=== PATIENT | male | born 1935 | race Caucasian/White ===

== ENCOUNTER 2017-09-19 08:23 | Inpatient (IN) | payer MEDICAID ==
[2017-09-19] MEDS ORDERED: NITROGLYCERIN (SL) 0.4 MG TAB SL (09:00)
[2017-09-19] MEDS: ASPIRIN 81 MG TAB PO (09:22)
[2017-09-19] MEDS: NITROGLYCERIN 2% 1 GM OINT PKT TD (09:22)
[2017-09-19] MEDS: DILTIAZEM 25 MG INJ IV (09:24)
[2017-09-19 09:31] LABS: ADD MAN DIFF? NO
[2017-09-19 09:35] LABS: BASOPHIL # 0.1 10^3/ul (0.0-0.1); BASOPHILS % 1.2 % (0.0-2.0); EOSINOPHILS # 0.6 10^3/ul (0.0-0.5); EOSINOPHILS % 6.3 % (0.0-7.0); HEMATOCRIT 34.1 % (42.0-52.0); HEMOGLOBIN 11.1 g/dl (14.0-18.0); LYMPHOCYTES # 2.7 10^3/ul (0.8-2.9); LYMPHOCYTES % 27.8 % (15.0-51.0); MEAN CORPUSCULAR HEMOGLOBIN 28.5 pg (29.0-33.0); MEAN CORPUSCULAR HGB CONC 32.6 g/dl (32.0-37.0); MEAN CORPUSCULAR VOLUME 87.7 fl (82.0-101.0); MEAN PLATELET VOLUME 10.5 fl (7.4-10.4); MONOCYTE # 0.8 10^3/ul (0.3-0.9); MONOCYTES % 8.2 % (0.0-11.0); NEUTROPHIL # 5.5 10^3/ul (1.6-7.5); NEUTROPHILS % 55.6 % (39.0-77.0); PLATELET COUNT 325 10^3/UL (140-415); RED BLOOD COUNT 3.89 10^6/ul (4.70-6.10); RED CELL DISTRIBUTION WIDTH 15.2 % (11.5-14.5)
[2017-09-19 09:35] LABS: WHITE BLOOD COUNT 9.9 10^3/ul (4.8-10.8)
[2017-09-19 09:52] LABS: INR 0.92; PROTIME 12.4 Sec (11.9-14.9)
[2017-09-19 09:53] LABS: PARTIAL THROMBOPLASTIN TIME 38.2 Sec (25.0-35.0)
[2017-09-19 09:54] LABS: ANION GAP 20 (8-16); BLOOD UREA NITROGEN 45 mg/dl (7-20); CARBON DIOXIDE 18 mmol/L (21-31); CHLORIDE 108 mmol/L (97-110); CREATININE 1.89 mg/dl (0.61-1.24); GLUCOSE 182 mg/dl (70-220); POTASSIUM 5.7 mmol/L (3.5-5.1); SODIUM 140 mmol/L (135-144)
[2017-09-19] MEDS: DILTIAZEM 30 MG TAB PO (09:59)
[2017-09-19 10:05] LABS: TROPONIN-I 0.055 ng/ml (0.00-0.12)
[2017-09-19] MEDS: NA BICARBONATE 8.4% 50 ML SYG IV (10:41)
[2017-09-19] MEDS ORDERED: ONDANSETRON 4 MG INJ IV (11:00)
[2017-09-19] MEDS ORDERED: ACETAMINOPHEN 325 MG TAB PO (11:00)
[2017-09-19] MEDS ORDERED: DEXTROSE 50% 50 ML SYRINGE IV ×2 (15:30)
[2017-09-19] MEDS ORDERED: GLUCOSE GEL 15 GRAM TUBE BUCCAL (15:30)
[2017-09-19] MEDS ORDERED: GLUCOSE GEL 15 GRAM TUBE PO ×2 (15:30)
[2017-09-19] MEDS ORDERED: GLUCAGON 1 MG INJ IM (15:30)
[2017-09-19] MEDS ORDERED: hydrALAzine 20 MG INJ IV (16:30)
[2017-09-19 16:47] LABS: CREATINE KINASE 47 IU/L (23-200)
[2017-09-19 16:51] LABS: CK INDEX 2.7
[2017-09-19 16:52] LABS: CK-MB 1.28 ng/ml (0.0-2.4)
[2017-09-19 17:05] LABS: TROPONIN-I 0.065 ng/ml (0.00-0.12)
[2017-09-19] MEDS: INSULIN ASPART [NOVOLOG] 3 ML PEN SC ×2 (17:31→20:47)
[2017-09-19] MEDS: FUROSEMIDE 20 MG INJ IV (17:35)
[2017-09-19 18:20] LABS: AADO2 Arterial 57.9 mmHg (7.0-24.0); Allen Test ACCEPTAB; Arterial Base Excess -1.3 mmol/L (-3.0-3); Arterial Blood Gas Oxygen Sat 97.8 mmHG (95.0-100.0); Arterial COHb 0.1 % (0.0-3.0); Arterial Fraction of Oxyhgb 97.5 % (93.0-99.0); Arterial HCO3 21.7 mmol/L (22.0-26.0); Arterial MetHb 0.2 % (0.0-1.5); Arterial Total Hemglobin 14.1 g/dl (12.0-18.0); Arterial pCO2 31.8 mmhg (35-45); MODE NASAL CANNULA; Site Left Radial
[2017-09-19 20:00] LABS: ADD UMIC YES; UR ASCORBIC ACID NEGATIVE (NEGATIVE); UR BACTERIA FEW /HPF (NONE SEEN); UR BILIRUBIN (Dip) NEGATIVE (NEGATIVE); UR BLOOD (Dip) 1+ mg/dL (NEGATIVE); UR CLARITY CLEAR (CLEAR); UR COLOR STRAW (YELLOW); UR GLUCOSE (Dip) NEGATIVE (NEGATIVE); UR KETONES (Dip) NEGATIVE (NEGATIVE); UR LEUKOCYTE ESTERASE (Dip) NEGATIVE Leu/ul (NEGATIVE); UR NITRITE (Dip) NEGATIVE (NEGATIVE); UR RBC 0 /HPF (0-5); UR SPECIFIC GRAVITY (Dip) 1.006 (1.003-1.030); UR TOTAL PROTEIN (Dip) 2+ mg/dl (NEGATIVE); UR UROBILINOGEN (Dip) NEGATIVE (NEGATIVE); UR WBC 1 /HPF (0-5)
[2017-09-19] MEDS: METOPROLOL 25 MG TAB PO (20:47)
[2017-09-19] MEDS: HEPARIN 5,000 UNIT/0.5 ML VIAL SC (21:01)
[2017-09-19 21:17] LABS: CREATINE KINASE 57 IU/L (23-200)
[2017-09-19 21:18] LABS: ANION GAP 17 (8-16); BLOOD UREA NITROGEN 43 mg/dl (7-20); CALCIUM 9.3 mg/dl (8.4-10.2); CARBON DIOXIDE 24 mmol/L (21-31); CHLORIDE 104 mmol/L (97-110); CREATININE 1.86 mg/dl (0.61-1.24); GLUCOSE 181 mg/dl (70-220); POTASSIUM 4.5 mmol/L (3.5-5.1); SODIUM 140 mmol/L (135-144)
[2017-09-19 21:29] LABS: CK INDEX 2.2; TROPONIN-I 0.063 ng/ml (0.00-0.12)
[2017-09-19 21:31] LABS: CK-MB 1.28 ng/ml (0.0-2.4)
[2017-09-20] MEDS: ACCU-CHEK XX (02:00)
[2017-09-20] MEDS: FUROSEMIDE 20 MG INJ IV ×2 (06:02→17:58)
[2017-09-20] MEDS: INSULIN ASPART [NOVOLOG] 3 ML PEN SC ×4 (07:55→20:51)
[2017-09-20] MEDS: ASPIRIN (EC) 81 MG TAB PO (08:09)
[2017-09-20] MEDS: METOPROLOL 25 MG TAB PO ×2 (08:10→20:33)
[2017-09-20] MEDS: HEPARIN 5,000 UNIT/0.5 ML VIAL SC (08:24)
[2017-09-20 11:56] LABS: ADD MAN DIFF? NO
[2017-09-20 12:00] LABS: WHITE BLOOD COUNT 9.6 10^3/ul (4.8-10.8)
[2017-09-20 12:00] LABS: BASOPHIL # 0.1 10^3/ul (0.0-0.1); BASOPHILS % 1.1 % (0.0-2.0); EOSINOPHILS # 0.5 10^3/ul (0.0-0.5); EOSINOPHILS % 5.4 % (0.0-7.0); HEMATOCRIT 35.5 % (42.0-52.0); HEMOGLOBIN 11.4 g/dl (14.0-18.0); LYMPHOCYTES # 1.9 10^3/ul (0.8-2.9); LYMPHOCYTES % 20.1 % (15.0-51.0); MEAN CORPUSCULAR HEMOGLOBIN 28.6 pg (29.0-33.0); MEAN CORPUSCULAR HGB CONC 32.1 g/dl (32.0-37.0); MEAN CORPUSCULAR VOLUME 89.2 fl (82.0-101.0); MONOCYTES % 9.9 % (0.0-11.0); NEUTROPHILS % 62.9 % (39.0-77.0); PLATELET COUNT 332 10^3/UL (140-415); RED BLOOD COUNT 3.98 10^6/ul (4.70-6.10); RED CELL DISTRIBUTION WIDTH 15.4 % (11.5-14.5)
[2017-09-20 12:25] LABS: URIC ACID 10.8 mg/dl (3.1-7.9)
[2017-09-20 12:25] LABS: MAGNESIUM 1.4 mg/dl (1.7-2.5); PHOSPHORUS 4.1 mg/dl (2.5-4.9)
[2017-09-20 12:27] LABS: ANION GAP 17 (8-16); BLOOD UREA NITROGEN 47 mg/dl (7-20); CALCIUM 9.2 mg/dl (8.4-10.2); CARBON DIOXIDE 25 mmol/L (21-31); CHLORIDE 102 mmol/L (97-110); CREATININE 1.99 mg/dl (0.61-1.24); GLUCOSE 147 mg/dl (70-220); POTASSIUM 4.6 mmol/L (3.5-5.1); SODIUM 139 mmol/L (135-144)
[2017-09-20 13:08] LABS: CREATININE,URINE RANDOM 53.67 mg/dl (20-370)
[2017-09-20 13:08] LABS: SODIUM,URINE RANDOM 117 mmol/L (30-90)
[2017-09-20] MEDS: MAGNESIUM SULFATE 2 GM/50 ML 50 ML IVPB (15:22)
[2017-09-20] MEDS: APIXABAN 5 MG TABLET PO (20:32)
[2017-09-21] MEDS: ACCU-CHEK XX (02:00)
[2017-09-21 06:43] LABS: ADD MAN DIFF? NO; HAAIG REFLEX REFLEX FILED
[2017-09-21 06:50] LABS: BASOPHIL # 0.1 10^3/ul (0.0-0.1); BASOPHILS % 1.3 % (0.0-2.0); EOSINOPHILS # 0.6 10^3/ul (0.0-0.5); EOSINOPHILS % 6.9 % (0.0-7.0); HEMOGLOBIN 11.9 g/dl (14.0-18.0); LYMPHOCYTES # 2.3 10^3/ul (0.8-2.9); LYMPHOCYTES % 25.7 % (15.0-51.0); MEAN CORPUSCULAR HEMOGLOBIN 28.5 pg (29.0-33.0); MEAN CORPUSCULAR HGB CONC 33.1 g/dl (32.0-37.0); MEAN CORPUSCULAR VOLUME 86.3 fl (82.0-101.0); MEAN PLATELET VOLUME 10.2 fl (7.4-10.4); MONOCYTE # 0.9 10^3/ul (0.3-0.9); MONOCYTES % 10.1 % (0.0-11.0); NEUTROPHILS % 55.6 % (39.0-77.0); PLATELET COUNT 341 10^3/UL (140-415); RED BLOOD COUNT 4.17 10^6/ul (4.70-6.10); RED CELL DISTRIBUTION WIDTH 15.5 % (11.5-14.5)
[2017-09-21 07:20] LABS: ANION GAP 16 (8-16); BLOOD UREA NITROGEN 51 mg/dl (7-20); CALCIUM 9.4 mg/dl (8.4-10.2); CARBON DIOXIDE 24 mmol/L (21-31); CHLORIDE 104 mmol/L (97-110); CREATININE 2.06 mg/dl (0.61-1.24); GLUCOSE 122 mg/dl (70-220); MAGNESIUM 1.8 mg/dl (1.7-2.5); POTASSIUM 4.4 mmol/L (3.5-5.1); SODIUM 140 mmol/L (135-144)
[2017-09-21 07:52] LABS: HEPATITIS B SURFACE ANTIGEN NEGATIVE (NEGATIVE)
[2017-09-21] MEDS: INSULIN ASPART [NOVOLOG] 3 ML PEN SC ×4 (07:53→20:22)
[2017-09-21 08:10] LABS: HEPATITIS B CORE ANTIBODY NEGATIVE (NEGATIVE); HEPATITIS C VIRAL ANTIBODY NEGATIVE (NEGATIVE)
[2017-09-21] MEDS: APIXABAN 5 MG TABLET PO ×2 (08:29→20:18)
[2017-09-21] MEDS: METOPROLOL 25 MG TAB PO (08:29)
[2017-09-21 11:07] LABS: IRON 60 ug/dl (35-150)
[2017-09-21 11:17] LABS: % IRON SATURATION 14 % SAT (22-52); TOTAL IRON BINDING CAPACITY 431 ug/dl (241-421)
[2017-09-21] MEDS: MAGNESIUM CHLORIDE (SR) 64 MG TAB PO ×2 (11:28→20:18)
[2017-09-21] MEDS: ALLOPURINOL 300 MG TAB PO (11:28)
[2017-09-21 11:44] LABS: FERRITIN 43.8 ng/ml (11.1-264.0)
[2017-09-21 15:13] LABS: RAPID PLASMA REAGIN NONREACTIVE (NR)
[2017-09-21] MEDS: LEVOTHYROXINE 75 MCG TAB PO (20:18)
[2017-09-21] MEDS: METOPROLOL 50 MG TAB PO (20:19)
[2017-09-22] MEDS: ACCU-CHEK XX (01:05)
[2017-09-22 05:01] LABS: PROTEIN, TOTAL 6.7 g/dL (6.1-8.1)
[2017-09-22 06:33] LABS: ADD MAN DIFF? NO
[2017-09-22 06:38] LABS: WHITE BLOOD COUNT 10.3 10^3/ul (4.8-10.8)
[2017-09-22 06:38] LABS: BASOPHIL # 0.1 10^3/ul (0.0-0.1); BASOPHILS % 1.4 % (0.0-2.0); EOSINOPHILS # 0.8 10^3/ul (0.0-0.5); EOSINOPHILS % 7.7 % (0.0-7.0); HEMATOCRIT 36.1 % (42.0-52.0); HEMOGLOBIN 11.7 g/dl (14.0-18.0); LYMPHOCYTES # 2.6 10^3/ul (0.8-2.9); LYMPHOCYTES % 24.8 % (15.0-51.0); MEAN CORPUSCULAR HEMOGLOBIN 28.1 pg (29.0-33.0); MEAN CORPUSCULAR HGB CONC 32.4 g/dl (32.0-37.0); MEAN CORPUSCULAR VOLUME 86.8 fl (82.0-101.0); MEAN PLATELET VOLUME 10.5 fl (7.4-10.4); MONOCYTE # 1.1 10^3/ul (0.3-0.9); MONOCYTES % 10.5 % (0.0-11.0); NEUTROPHIL # 5.7 10^3/ul (1.6-7.5); NEUTROPHILS % 55.1 % (39.0-77.0); PLATELET COUNT 331 10^3/UL (140-415); RED BLOOD COUNT 4.16 10^6/ul (4.70-6.10); RED CELL DISTRIBUTION WIDTH 15.6 % (11.5-14.5)
[2017-09-22] MEDS: ACETAMINOPHEN 325 MG TAB PO (06:40)
[2017-09-22 07:07] LABS: MAGNESIUM 1.8 mg/dl (1.7-2.5)
[2017-09-22 07:08] LABS: ANION GAP 16 (8-16); BLOOD UREA NITROGEN 59 mg/dl (7-20); CALCIUM 9.5 mg/dl (8.4-10.2); CARBON DIOXIDE 25 mmol/L (21-31); CHLORIDE 102 mmol/L (97-110); CREATININE 2.13 mg/dl (0.61-1.24); GLUCOSE 128 mg/dl (70-220); POTASSIUM 4.4 mmol/L (3.5-5.1); SODIUM 139 mmol/L (135-144)
[2017-09-22 07:55] LABS: HEMOGLOBIN A1C 6.6 % (0-5.9)
[2017-09-22] MEDS: INSULIN ASPART [NOVOLOG] 3 ML PEN SC ×4 (07:55→20:37)
[2017-09-22] MEDS: METOPROLOL 50 MG TAB PO ×2 (08:38→20:29)
[2017-09-22] MEDS: ALLOPURINOL 300 MG TAB PO (08:39)
[2017-09-22] MEDS: MAGNESIUM CHLORIDE (SR) 64 MG TAB PO ×2 (08:39→20:27)
[2017-09-22] MEDS: APIXABAN 5 MG TABLET PO ×2 (08:39→20:30)
[2017-09-22] MEDS: SOD FERRIC GLUC COMPLX 125 MG in SOD CHLORIDE 0.9% 100 ML IVPB (11:44)
[2017-09-22] MEDS: DOXAZOSIN 1 MG TAB PO (11:47)
[2017-09-22] MEDS: LEVOTHYROXINE 75 MCG TAB PO (20:27)
[2017-09-22] MEDS: DOXAZOSIN 2 MG TAB PO (20:28)
[2017-09-23] MEDS: ACCU-CHEK XX (02:00)
[2017-09-23] MEDS: ACETAMINOPHEN 325 MG TAB PO ×3 (02:17→20:24)
[2017-09-23] MEDS: INSULIN ASPART [NOVOLOG] 3 ML PEN SC ×4 (07:55→21:00)
[2017-09-23 08:13] LABS: ADD MAN DIFF? NO
[2017-09-23] MEDS: MAGNESIUM CHLORIDE (SR) 64 MG TAB PO ×2 (08:23→20:24)
[2017-09-23] MEDS: METOPROLOL 50 MG TAB PO ×2 (08:24→20:24)
[2017-09-23] MEDS: APIXABAN 5 MG TABLET PO ×2 (08:25→20:24)
[2017-09-23] MEDS: ALLOPURINOL 300 MG TAB PO (08:25)
[2017-09-23 08:29] LABS: WHITE BLOOD COUNT 11.6 10^3/ul (4.8-10.8)
[2017-09-23 08:29] LABS: BASOPHIL # 0.1 10^3/ul (0.0-0.1); BASOPHILS % 1.1 % (0.0-2.0); EOSINOPHILS # 0.7 10^3/ul (0.0-0.5); EOSINOPHILS % 5.6 % (0.0-7.0); HEMATOCRIT 33.4 % (42.0-52.0); HEMOGLOBIN 10.9 g/dl (14.0-18.0); LYMPHOCYTES # 2.5 10^3/ul (0.8-2.9); LYMPHOCYTES % 21.8 % (15.0-51.0); MEAN CORPUSCULAR HEMOGLOBIN 28.8 pg (29.0-33.0); MEAN CORPUSCULAR HGB CONC 32.6 g/dl (32.0-37.0); MEAN CORPUSCULAR VOLUME 88.4 fl (82.0-101.0); MEAN PLATELET VOLUME 10.8 fl (7.4-10.4); MONOCYTE # 1.1 10^3/ul (0.3-0.9); MONOCYTES % 9.9 % (0.0-11.0); NEUTROPHIL # 7.1 10^3/ul (1.6-7.5); NEUTROPHILS % 61.2 % (39.0-77.0); PLATELET COUNT 289 10^3/UL (140-415); RED BLOOD COUNT 3.78 10^6/ul (4.70-6.10); RED CELL DISTRIBUTION WIDTH 15.5 % (11.5-14.5)
[2017-09-23 08:45] LABS: ANION GAP 16 (8-16); BLOOD UREA NITROGEN 67 mg/dl (7-20); CALCIUM 9.1 mg/dl (8.4-10.2); CARBON DIOXIDE 21 mmol/L (21-31); CHLORIDE 106 mmol/L (97-110); CREATININE 2.27 mg/dl (0.61-1.24); GLUCOSE 122 mg/dl (70-220); POTASSIUM 4.5 mmol/L (3.5-5.1); SODIUM 138 mmol/L (135-144)
[2017-09-23] MEDS: LEVOTHYROXINE 75 MCG TAB PO (20:23)
[2017-09-23] MEDS: DOXAZOSIN 4 MG TAB PO (20:24)
[2017-09-23 22:46] LABS: RHEUMATOID FACTOR NEGATIVE (NEGATIVE)
[2017-09-24] MEDS: ACCU-CHEK XX (02:00)
[2017-09-24] MEDS: INSULIN ASPART [NOVOLOG] 3 ML PEN SC ×4 (07:39→20:54)
[2017-09-24] MEDS: MAGNESIUM CHLORIDE (SR) 64 MG TAB PO ×2 (08:18→20:48)
[2017-09-24] MEDS: METOPROLOL 50 MG TAB PO ×2 (08:19→20:49)
[2017-09-24] MEDS: APIXABAN 5 MG TABLET PO ×2 (08:19→20:49)
[2017-09-24] MEDS: ALLOPURINOL 300 MG TAB PO (08:19)
[2017-09-24 09:00] LABS: ANION GAP 18 (8-16); BLOOD UREA NITROGEN 66 mg/dl (7-20); CALCIUM 9.2 mg/dl (8.4-10.2); CARBON DIOXIDE 19 mmol/L (21-31); CHLORIDE 105 mmol/L (97-110); CREATININE 2.32 mg/dl (0.61-1.24); GLUCOSE 132 mg/dl (70-220); POTASSIUM 4.5 mmol/L (3.5-5.1); SODIUM 137 mmol/L (135-144)
[2017-09-24] MEDS: ACETAMINOPHEN 325 MG TAB PO ×2 (09:40→19:39)
[2017-09-24] MEDS: CITRIC ACID/SODIUM CITRATE 15 ML CUP PO ×2 (12:41→20:48)
[2017-09-24 14:12] LABS: ADD UMIC YES; UR ASCORBIC ACID NEGATIVE (NEGATIVE); UR BILIRUBIN (Dip) NEGATIVE (NEGATIVE); UR BLOOD (Dip) NEGATIVE (NEGATIVE); UR CLARITY CLEAR (CLEAR); UR COLOR YELLOW (YELLOW); UR GLUCOSE (Dip) NEGATIVE (NEGATIVE); UR KETONES (Dip) NEGATIVE (NEGATIVE); UR LEUKOCYTE ESTERASE (Dip) NEGATIVE Leu/ul (NEGATIVE); UR NITRITE (Dip) NEGATIVE (NEGATIVE); UR RBC 0 /HPF (0-5); UR SPECIFIC GRAVITY (Dip) 1.013 (1.003-1.030); UR TOTAL PROTEIN (Dip) 2+ mg/dl (NEGATIVE); UR UROBILINOGEN (Dip) NEGATIVE (NEGATIVE); UR WBC 0 /HPF (0-5)
[2017-09-24] MEDS: DOXAZOSIN 4 MG TAB PO (20:48)
[2017-09-24] MEDS: LEVOTHYROXINE 75 MCG TAB PO (20:58)
[2017-09-25] MEDS: ACCU-CHEK XX (02:13)
[2017-09-25] MEDS: INSULIN ASPART [NOVOLOG] 3 ML PEN SC ×4 (07:49→20:18)
[2017-09-25] MEDS: ACETAMINOPHEN 325 MG TAB PO (07:53)
[2017-09-25] MEDS: CITRIC ACID/SODIUM CITRATE 15 ML CUP PO ×2 (08:32→20:14)
[2017-09-25] MEDS: MAGNESIUM CHLORIDE (SR) 64 MG TAB PO ×2 (08:32→20:14)
[2017-09-25] MEDS: ALLOPURINOL 300 MG TAB PO (08:32)
[2017-09-25] MEDS: APIXABAN 5 MG TABLET PO ×2 (08:33→20:15)
[2017-09-25] MEDS: METOPROLOL 50 MG TAB PO ×2 (08:33→20:15)
[2017-09-25 10:33] LABS: ANION GAP 18 (8-16); BLOOD UREA NITROGEN 68 mg/dl (7-20); CALCIUM 9.5 mg/dl (8.4-10.2); CARBON DIOXIDE 19 mmol/L (21-31); CHLORIDE 104 mmol/L (97-110); CREATININE 2.36 mg/dl (0.61-1.24); GLUCOSE 140 mg/dl (70-220); POTASSIUM 4.5 mmol/L (3.5-5.1); SODIUM 136 mmol/L (135-144)
[2017-09-25 10:35] LABS: MAGNESIUM 1.9 mg/dl (1.7-2.5)
[2017-09-25 11:48] LABS: URIC ACID 10.1 mg/dl (3.1-7.9)
[2017-09-25] MEDS: predniSONE 20 MG TAB PO (12:45)
[2017-09-25] MEDS: SOD CHLORIDE 0.9% 1,000 ML IV (12:48)
[2017-09-25] MEDS: LEVOTHYROXINE 75 MCG TAB PO (20:14)
[2017-09-25] MEDS: DOXAZOSIN 4 MG TAB PO (20:15)
[2017-09-25 22:41] LABS: ALBUMIN 3.4 g/dL (3.8-4.8); ALPHA-1-GLOBULINS 0.3 g/dL (0.2-0.3); ALPHA-2-GLOBULINS 0.8 g/dL (0.5-0.9); BETA 2 GLOBULINS 0.3 g/dL (0.2-0.5); BETA GLOBULINS 0.5 g/dL (0.4-0.6); GAMMA GLOBULINS 1.4 g/dL (0.8-1.7)
[2017-09-26] MEDS: ACCU-CHEK XX (02:00)
[2017-09-26] MEDS: INSULIN ASPART [NOVOLOG] 3 ML PEN SC ×4 (07:49→20:12)
[2017-09-26 07:54] LABS: ANION GAP 16 (8-16); BLOOD UREA NITROGEN 75 mg/dl (7-20); CALCIUM 8.9 mg/dl (8.4-10.2); CARBON DIOXIDE 19 mmol/L (21-31); CHLORIDE 106 mmol/L (97-110); CREATININE 2.23 mg/dl (0.61-1.24); GLUCOSE 145 mg/dl (70-220); POTASSIUM 4.6 mmol/L (3.5-5.1); SODIUM 136 mmol/L (135-144)
[2017-09-26] MEDS: CITRIC ACID/SODIUM CITRATE 15 ML CUP PO ×2 (08:11→20:06)
[2017-09-26] MEDS: APIXABAN 5 MG TABLET PO ×2 (08:11→20:07)
[2017-09-26] MEDS: ACETAMINOPHEN 325 MG TAB PO (08:12)
[2017-09-26] MEDS: ALLOPURINOL 300 MG TAB PO (08:12)
[2017-09-26] MEDS: predniSONE 20 MG TAB PO (08:12)
[2017-09-26] MEDS: MAGNESIUM CHLORIDE (SR) 64 MG TAB PO ×2 (08:12→20:07)
[2017-09-26] MEDS: METOPROLOL 50 MG TAB PO ×2 (08:14→20:07)
[2017-09-26] MEDS: DOXAZOSIN 4 MG TAB PO (20:08)
[2017-09-26] MEDS: LEVOTHYROXINE 75 MCG TAB PO (20:10)
[2017-09-27] MEDS: ACCU-CHEK XX (02:30)
[2017-09-27] MEDS: ACETAMINOPHEN 325 MG TAB PO ×2 (04:33→11:31)
[2017-09-27 06:53] LABS: ADD MAN DIFF? NO
[2017-09-27 06:55] LABS: WHITE BLOOD COUNT 19.5 10^3/ul (4.8-10.8)
[2017-09-27 06:55] LABS: BASOPHIL # 0.1 10^3/ul (0.0-0.1); BASOPHILS % 0.5 % (0.0-2.0); EOSINOPHILS # 0.1 10^3/ul (0.0-0.5); EOSINOPHILS % 0.4 % (0.0-7.0); HEMATOCRIT 29.9 % (42.0-52.0); HEMOGLOBIN 9.6 g/dl (14.0-18.0); LYMPHOCYTES # 1.7 10^3/ul (0.8-2.9); LYMPHOCYTES % 8.8 % (15.0-51.0); MEAN CORPUSCULAR HEMOGLOBIN 28.7 pg (29.0-33.0); MEAN CORPUSCULAR HGB CONC 32.1 g/dl (32.0-37.0); MEAN CORPUSCULAR VOLUME 89.3 fl (82.0-101.0); MEAN PLATELET VOLUME 10.9 fl (7.4-10.4); MONOCYTE # 1.4 10^3/ul (0.3-0.9); MONOCYTES % 7.1 % (0.0-11.0); NEUTROPHIL # 16.1 10^3/ul (1.6-7.5); NEUTROPHILS % 82.6 % (39.0-77.0); PLATELET COUNT 256 10^3/UL (140-415); RED BLOOD COUNT 3.35 10^6/ul (4.70-6.10); RED CELL DISTRIBUTION WIDTH 15.7 % (11.5-14.5)
[2017-09-27 07:24] LABS: ANION GAP 21 (8-16); BLOOD UREA NITROGEN 75 mg/dl (7-20); CALCIUM 9.1 mg/dl (8.4-10.2); CARBON DIOXIDE 20 mmol/L (21-31); CHLORIDE 105 mmol/L (97-110); CREATININE 2.08 mg/dl (0.61-1.24); GLUCOSE 118 mg/dl (70-220); POTASSIUM 4.4 mmol/L (3.5-5.1); SODIUM 142 mmol/L (135-144)
[2017-09-27] MEDS: INSULIN ASPART [NOVOLOG] 3 ML PEN SC ×5 (07:55→21:06)
[2017-09-27] MEDS: ALLOPURINOL 300 MG TAB PO (11:31)
[2017-09-27] MEDS: predniSONE 20 MG TAB PO (11:31)
[2017-09-27] MEDS: CITRIC ACID/SODIUM CITRATE 15 ML CUP PO ×2 (11:31→20:04)
[2017-09-27] MEDS: APIXABAN 5 MG TABLET PO ×2 (11:31→20:05)
[2017-09-27] MEDS: MAGNESIUM CHLORIDE (SR) 64 MG TAB PO ×2 (11:31→20:04)
[2017-09-27] MEDS: METOPROLOL 50 MG TAB PO ×2 (11:32→20:05)
[2017-09-27] MEDS: LINAGLIPTIN 5 MG TABLET PO (15:20)
[2017-09-27] MEDS: LEVOTHYROXINE 75 MCG TAB PO (20:04)
[2017-09-27] MEDS: DOXAZOSIN 4 MG TAB PO (20:06)
[2017-09-28] MEDS: ACCU-CHEK XX ×2 (02:00→02:52)
[2017-09-28] MEDS ORDERED: VANCOMYCIN IV PER PHARMACY XX (03:00)
[2017-09-28] MEDS: VANCOMYCIN 1.5 GM in DEXTROSE 5% 500 ML IVPB (05:07)
[2017-09-28 05:28] LABS: ADD MAN DIFF? NO
[2017-09-28 05:46] LABS: ABNORMAL IP MESSAGE 1; BASOPHIL # 0.1 10^3/ul (0.0-0.1); BASOPHILS % 0.3 % (0.0-2.0); EOSINOPHILS # 0.1 10^3/ul (0.0-0.5); EOSINOPHILS % 0.2 % (0.0-7.0); HEMATOCRIT 28.2 % (42.0-52.0); LYMPHOCYTES # 2.1 10^3/ul (0.8-2.9); LYMPHOCYTES % 9.6 % (15.0-51.0); MEAN CORPUSCULAR HEMOGLOBIN 28.5 pg (29.0-33.0); MEAN CORPUSCULAR HGB CONC 31.9 g/dl (32.0-37.0); MEAN CORPUSCULAR VOLUME 89.2 fl (82.0-101.0); MEAN PLATELET VOLUME 11.4 fl (7.4-10.4); MONOCYTE # 1.6 10^3/ul (0.3-0.9); MONOCYTES % 7.6 % (0.0-11.0); NEUTROPHIL # 17.5 10^3/ul (1.6-7.5); NEUTROPHILS % 81.6 % (39.0-77.0); PLATELET COUNT 260 10^3/UL (140-415); POSITIVE DIFF @See below; RED BLOOD COUNT 3.16 10^6/ul (4.70-6.10); RED CELL DISTRIBUTION WIDTH 15.7 % (11.5-14.5)
[2017-09-28 05:46] LABS: WHITE BLOOD COUNT 21.5 10^3/ul (4.8-10.8)
[2017-09-28 06:30] LABS: ANION GAP 16 (8-16); BLOOD UREA NITROGEN 75 mg/dl (7-20); CALCIUM 9.1 mg/dl (8.4-10.2); CARBON DIOXIDE 24 mmol/L (21-31); CHLORIDE 104 mmol/L (97-110); CREATININE 2.12 mg/dl (0.61-1.24); GLUCOSE 127 mg/dl (70-220); POTASSIUM 4.5 mmol/L (3.5-5.1); SODIUM 139 mmol/L (135-144)
[2017-09-28] MEDS: METOPROLOL 50 MG TAB PO ×2 (08:47→20:45)
[2017-09-28] MEDS: LINAGLIPTIN 5 MG TABLET PO (08:48)
[2017-09-28] MEDS: predniSONE 20 MG TAB PO (08:48)
[2017-09-28] MEDS: CITRIC ACID/SODIUM CITRATE 15 ML CUP PO ×2 (08:48→20:42)
[2017-09-28] MEDS: ALLOPURINOL 300 MG TAB PO (08:48)
[2017-09-28] MEDS: APIXABAN 5 MG TABLET PO ×2 (08:49→20:43)
[2017-09-28] MEDS: INSULIN ASPART [NOVOLOG] 3 ML PEN SC ×4 (08:50→20:48)
[2017-09-28] MEDS: MAGNESIUM CHLORIDE (SR) 64 MG TAB PO ×2 (09:51→20:46)
[2017-09-28] MEDS: LACTATED RINGER'S 500 ML IV (09:54)
[2017-09-28] MEDS: DOXAZOSIN 4 MG TAB PO (20:43)
[2017-09-28] MEDS: LEVOTHYROXINE 75 MCG TAB PO (20:45)
[2017-09-29] MEDS: ACCU-CHEK XX (01:51)
[2017-09-29 06:51] LABS: ANION GAP 16 (8-16); BLOOD UREA NITROGEN 68 mg/dl (7-20); CALCIUM 8.6 mg/dl (8.4-10.2); CARBON DIOXIDE 22 mmol/L (21-31); CHLORIDE 102 mmol/L (97-110); CREATININE 1.82 mg/dl (0.61-1.24); GLUCOSE 163 mg/dl (70-220); POTASSIUM 3.9 mmol/L (3.5-5.1); SODIUM 136 mmol/L (135-144)
[2017-09-29 06:51] LABS: URIC ACID 7.8 mg/dl (3.1-7.9)
[2017-09-29] MEDS: ACETAMINOPHEN 325 MG TAB PO ×2 (08:40→19:22)
[2017-09-29] MEDS: LINAGLIPTIN 5 MG TABLET PO (08:41)
[2017-09-29] MEDS: MAGNESIUM CHLORIDE (SR) 64 MG TAB PO ×2 (08:41→20:32)
[2017-09-29] MEDS: ALLOPURINOL 300 MG TAB PO (08:41)
[2017-09-29] MEDS: predniSONE 20 MG TAB PO (08:41)
[2017-09-29] MEDS: APIXABAN 5 MG TABLET PO ×2 (08:42→20:32)
[2017-09-29] MEDS: METOPROLOL 50 MG TAB PO ×2 (08:42→20:30)
[2017-09-29] MEDS: CITRIC ACID/SODIUM CITRATE 15 ML CUP PO ×2 (08:42→20:31)
[2017-09-29] MEDS: INSULIN ASPART [NOVOLOG] 3 ML PEN SC ×4 (08:55→20:37)
[2017-09-29] MEDS: LACTATED RINGER'S 1,000 ML IV (12:09)
[2017-09-29] MEDS: FINASTERIDE 5 MG TAB PO (12:41)
[2017-09-29] MEDS: FOSFOMYCIN 3 GM PACKET PO (12:41)
[2017-09-29] MEDS: MEROPENEM 1 GM/50ML(PMX) 50 ML IVPB ×2 (13:26→20:31)
[2017-09-29] MEDS: VANCOMYCIN 1.25 GM in SODIUM CHLORIDE 0.45 % 250 ML IVPB (16:08)
[2017-09-29] MEDS: LEVOTHYROXINE 75 MCG TAB PO (20:30)
[2017-09-29] MEDS: DOXAZOSIN 4 MG TAB PO (20:31)
[2017-09-30] MEDS: ACCU-CHEK XX (02:11)
[2017-09-30] MEDS ORDERED: VANCOMYCIN 1.25 GM in SODIUM CHLORIDE 0.45 % 250 ML IVPB ×2 (04:00→06:00)
[2017-09-30 05:41] LABS: ADD MAN DIFF? NO
[2017-09-30 05:51] LABS: WHITE BLOOD COUNT 10.2 10^3/ul (4.8-10.8)
[2017-09-30 05:51] LABS: BASOPHIL # 0.1 10^3/ul (0.0-0.1); BASOPHILS % 0.7 % (0.0-2.0); EOSINOPHILS # 0.3 10^3/ul (0.0-0.5); EOSINOPHILS % 2.9 % (0.0-7.0); HEMATOCRIT 28.5 % (42.0-52.0); HEMOGLOBIN 9.1 g/dl (14.0-18.0); LYMPHOCYTES # 1.8 10^3/ul (0.8-2.9); LYMPHOCYTES % 17.5 % (15.0-51.0); MEAN CORPUSCULAR HEMOGLOBIN 28.5 pg (29.0-33.0); MEAN CORPUSCULAR HGB CONC 31.9 g/dl (32.0-37.0); MEAN CORPUSCULAR VOLUME 89.3 fl (82.0-101.0); MEAN PLATELET VOLUME 10.9 fl (7.4-10.4); MONOCYTE # 1.2 10^3/ul (0.3-0.9); MONOCYTES % 11.6 % (0.0-11.0); NEUTROPHIL # 6.8 10^3/ul (1.6-7.5); NEUTROPHILS % 66.7 % (39.0-77.0); PLATELET COUNT 255 10^3/UL (140-415); RED BLOOD COUNT 3.19 10^6/ul (4.70-6.10); RED CELL DISTRIBUTION WIDTH 15.4 % (11.5-14.5)
[2017-09-30 06:05] LABS: ANION GAP 15 (8-16); BLOOD UREA NITROGEN 59 mg/dl (7-20); CALCIUM 8.5 mg/dl (8.4-10.2); CARBON DIOXIDE 23 mmol/L (21-31); CHLORIDE 106 mmol/L (97-110); CREATININE 1.76 mg/dl (0.61-1.24); GLUCOSE 110 mg/dl (70-220); POTASSIUM 4.3 mmol/L (3.5-5.1); SODIUM 140 mmol/L (135-144)
[2017-09-30] MEDS: CITRIC ACID/SODIUM CITRATE 15 ML CUP PO ×2 (08:51→20:43)
[2017-09-30] MEDS: ALLOPURINOL 300 MG TAB PO (08:52)
[2017-09-30] MEDS: LINAGLIPTIN 5 MG TABLET PO (08:52)
[2017-09-30] MEDS: MAGNESIUM CHLORIDE (SR) 64 MG TAB PO ×2 (08:52→20:44)
[2017-09-30] MEDS: FINASTERIDE 5 MG TAB PO (08:52)
[2017-09-30] MEDS: APIXABAN 5 MG TABLET PO ×2 (08:53→20:45)
[2017-09-30] MEDS: METOPROLOL 50 MG TAB PO ×2 (08:53→20:44)
[2017-09-30] MEDS: MEROPENEM 1 GM/50ML(PMX) 50 ML IVPB ×2 (08:53→21:53)
[2017-09-30] MEDS: INSULIN ASPART [NOVOLOG] 3 ML PEN SC ×4 (08:58→20:50)
[2017-09-30] MEDS: ACETAMINOPHEN 325 MG TAB PO (18:00)
[2017-09-30] MEDS: LEVOTHYROXINE 75 MCG TAB PO (20:44)
[2017-09-30] MEDS: DOXAZOSIN 4 MG TAB PO (20:44)
[2017-10-01] MEDS: ACCU-CHEK XX (02:00)
[2017-10-01] MEDS: VANCOMYCIN 1.25 GM in SODIUM CHLORIDE 0.45 % 250 ML IVPB (05:07)
[2017-10-01 05:15] LABS: ADD MAN DIFF? NO
[2017-10-01 05:18] LABS: WHITE BLOOD COUNT 9.8 10^3/ul (4.8-10.8)
[2017-10-01 05:18] LABS: BASOPHIL # 0.1 10^3/ul (0.0-0.1); BASOPHILS % 0.7 % (0.0-2.0); EOSINOPHILS # 0.6 10^3/ul (0.0-0.5); EOSINOPHILS % 5.6 % (0.0-7.0); HEMATOCRIT 29.6 % (42.0-52.0); HEMOGLOBIN 9.6 g/dl (14.0-18.0); LYMPHOCYTES # 1.9 10^3/ul (0.8-2.9); LYMPHOCYTES % 19.9 % (15.0-51.0); MEAN CORPUSCULAR HEMOGLOBIN 28.7 pg (29.0-33.0); MEAN CORPUSCULAR HGB CONC 32.4 g/dl (32.0-37.0); MEAN CORPUSCULAR VOLUME 88.4 fl (82.0-101.0); MEAN PLATELET VOLUME 10.9 fl (7.4-10.4); MONOCYTE # 1.2 10^3/ul (0.3-0.9); MONOCYTES % 12.5 % (0.0-11.0); NEUTROPHIL # 5.9 10^3/ul (1.6-7.5); NEUTROPHILS % 60.6 % (39.0-77.0); PLATELET COUNT 261 10^3/UL (140-415); RED BLOOD COUNT 3.35 10^6/ul (4.70-6.10); RED CELL DISTRIBUTION WIDTH 15.3 % (11.5-14.5)
[2017-10-01 06:11] LABS: ANION GAP 16 (8-16); BLOOD UREA NITROGEN 55 mg/dl (7-20); CARBON DIOXIDE 25 mmol/L (21-31); CHLORIDE 103 mmol/L (97-110); GLUCOSE 113 mg/dl (70-220); MAGNESIUM 1.5 mg/dl (1.7-2.5); POTASSIUM 4.5 mmol/L (3.5-5.1); SODIUM 139 mmol/L (135-144)
[2017-10-01] MEDS: INSULIN ASPART [NOVOLOG] 3 ML PEN SC ×4 (08:56→20:53)
[2017-10-01] MEDS: MAGNESIUM CHLORIDE (SR) 64 MG TAB PO ×2 (08:57→20:45)
[2017-10-01] MEDS: METOPROLOL 50 MG TAB PO ×2 (08:58→20:46)
[2017-10-01] MEDS: ALLOPURINOL 300 MG TAB PO (08:58)
[2017-10-01] MEDS: LINAGLIPTIN 5 MG TABLET PO (08:58)
[2017-10-01] MEDS: FINASTERIDE 5 MG TAB PO (08:58)
[2017-10-01] MEDS: APIXABAN 5 MG TABLET PO ×2 (08:59→20:45)
[2017-10-01] MEDS: CITRIC ACID/SODIUM CITRATE 15 ML CUP PO ×2 (08:59→20:46)
[2017-10-01] MEDS: MEROPENEM 1 GM/50ML(PMX) 50 ML IVPB ×2 (09:00→20:46)
[2017-10-01] MEDS: ACETAMINOPHEN 325 MG TAB PO (12:50)
[2017-10-01] MEDS: MAGNESIUM OXIDE 400 MG TAB PO (15:41)
[2017-10-01] MEDS: LEVOTHYROXINE 75 MCG TAB PO (20:45)
[2017-10-01] MEDS: DOXAZOSIN 4 MG TAB PO (20:45)
[2017-10-02] MEDS: ACCU-CHEK XX (01:30)
[2017-10-02 06:59] LABS: ANION GAP 16 (8-16); BLOOD UREA NITROGEN 53 mg/dl (7-20); CARBON DIOXIDE 25 mmol/L (21-31); CHLORIDE 101 mmol/L (97-110); CREATININE 1.88 mg/dl (0.61-1.24); GLUCOSE 115 mg/dl (70-220); MAGNESIUM 1.6 mg/dl (1.7-2.5); POTASSIUM 4.8 mmol/L (3.5-5.1); SODIUM 137 mmol/L (135-144)
[2017-10-02] MEDS: INSULIN ASPART [NOVOLOG] 3 ML PEN SC ×4 (07:50→20:57)
[2017-10-02] MEDS: LINAGLIPTIN 5 MG TABLET PO (08:40)
[2017-10-02] MEDS: MAGNESIUM CHLORIDE (SR) 64 MG TAB PO ×2 (08:40→20:52)
[2017-10-02] MEDS: ALLOPURINOL 300 MG TAB PO (08:40)
[2017-10-02] MEDS: FINASTERIDE 5 MG TAB PO (08:40)
[2017-10-02] MEDS: APIXABAN 5 MG TABLET PO ×2 (08:40→20:51)
[2017-10-02] MEDS: ACETAMINOPHEN 325 MG TAB PO ×2 (08:40→20:52)
[2017-10-02] MEDS: CITRIC ACID/SODIUM CITRATE 15 ML CUP PO ×2 (08:40→20:51)
[2017-10-02] MEDS: METOPROLOL 50 MG TAB PO ×2 (08:41→20:52)
[2017-10-02] MEDS: MEROPENEM 1 GM/50ML(PMX) 50 ML IVPB (08:46)
[2017-10-02] MEDS: MAGNESIUM SULFATE 2 GM/50 ML 50 ML IVPB (11:31)
[2017-10-02] MEDS: ERTAPENEM SODIUM 1 GM in SOD CHLORIDE 0.9% 100 ML IVPB (14:41)
[2017-10-02 17:09] LABS: VANCOMYCIN,TROUGH 11.6 ug/ml (10.0-20.0)
[2017-10-02] MEDS: VANCOMYCIN 1.25 GM in SODIUM CHLORIDE 0.45 % 250 ML IVPB (17:17)
[2017-10-02] MEDS: LEVOTHYROXINE 75 MCG TAB PO (20:51)
[2017-10-02] MEDS: DOXAZOSIN 4 MG TAB PO (20:51)
[2017-10-03] MEDS: ACETAMINOPHEN 325 MG TAB PO (01:15)
[2017-10-03] MEDS: ACCU-CHEK XX (02:00)
[2017-10-03 05:09] LABS: ADD MAN DIFF? NO
[2017-10-03 05:12] LABS: WHITE BLOOD COUNT 11.5 10^3/ul (4.8-10.8)
[2017-10-03 05:12] LABS: BASOPHILS % 0.3 % (0.0-2.0); EOSINOPHILS # 0.4 10^3/ul (0.0-0.5); EOSINOPHILS % 3.5 % (0.0-7.0); HEMATOCRIT 28.8 % (42.0-52.0); HEMOGLOBIN 9.3 g/dl (14.0-18.0); LYMPHOCYTES % 17.3 % (15.0-51.0); MEAN CORPUSCULAR HEMOGLOBIN 28.4 pg (29.0-33.0); MEAN CORPUSCULAR HGB CONC 32.3 g/dl (32.0-37.0); MEAN CORPUSCULAR VOLUME 87.8 fl (82.0-101.0); MEAN PLATELET VOLUME 10.9 fl (7.4-10.4); MONOCYTE # 1.4 10^3/ul (0.3-0.9); MONOCYTES % 12.5 % (0.0-11.0); NEUTROPHIL # 7.5 10^3/ul (1.6-7.5); NEUTROPHILS % 65.4 % (39.0-77.0); PLATELET COUNT 242 10^3/UL (140-415); RED BLOOD COUNT 3.28 10^6/ul (4.70-6.10); RED CELL DISTRIBUTION WIDTH 15.3 % (11.5-14.5)
[2017-10-03 06:50] LABS: ANION GAP 15 (8-16); BLOOD UREA NITROGEN 53 mg/dl (7-20); CALCIUM 8.4 mg/dl (8.4-10.2); CARBON DIOXIDE 24 mmol/L (21-31); CHLORIDE 101 mmol/L (97-110); CREATININE 1.87 mg/dl (0.61-1.24); GLUCOSE 123 mg/dl (70-220); MAGNESIUM 2.1 mg/dl (1.7-2.5); POTASSIUM 4.4 mmol/L (3.5-5.1); SODIUM 136 mmol/L (135-144)
[2017-10-03] MEDS: INSULIN ASPART [NOVOLOG] 3 ML PEN SC ×4 (07:50→20:37)
[2017-10-03] MEDS: CITRIC ACID/SODIUM CITRATE 15 ML CUP PO ×2 (08:52→20:30)
[2017-10-03] MEDS: FINASTERIDE 5 MG TAB PO (08:53)
[2017-10-03] MEDS: APIXABAN 5 MG TABLET PO ×2 (08:53→20:31)
[2017-10-03] MEDS: LINAGLIPTIN 5 MG TABLET PO (08:53)
[2017-10-03] MEDS: MAGNESIUM CHLORIDE (SR) 64 MG TAB PO ×2 (08:53→20:30)
[2017-10-03] MEDS: ALLOPURINOL 300 MG TAB PO (08:54)
[2017-10-03] MEDS: METOPROLOL 50 MG TAB PO ×2 (08:54→20:31)
[2017-10-03] MEDS: morphine 2 MG INJ IV (11:32)
[2017-10-03] MEDS: ERTAPENEM SODIUM 1 GM in SOD CHLORIDE 0.9% 100 ML IVPB (13:33)
[2017-10-03] MEDS: HYDROCODONE/APAP (5/325) TAB PO (13:34)
[2017-10-03] MEDS: LEVOTHYROXINE 75 MCG TAB PO (20:30)
[2017-10-03] MEDS: DOXAZOSIN 4 MG TAB PO (20:31)
[2017-10-04] MEDS: ACCU-CHEK XX (02:00)
[2017-10-04] MEDS: ACETAMINOPHEN 325 MG TAB PO ×2 (02:23→21:31)
[2017-10-04 05:19] LABS: ADD MAN DIFF? NO
[2017-10-04 05:23] LABS: WHITE BLOOD COUNT 13.5 10^3/ul (4.8-10.8)
[2017-10-04 05:23] LABS: ABNORMAL IP MESSAGE 1; BASOPHILS % 0.3 % (0.0-2.0); EOSINOPHILS # 0.1 10^3/ul (0.0-0.5); HEMATOCRIT 27.9 % (42.0-52.0); HEMOGLOBIN 8.9 g/dl (14.0-18.0); LYMPHOCYTES % 14.5 % (15.0-51.0); MEAN CORPUSCULAR HGB CONC 31.9 g/dl (32.0-37.0); MEAN CORPUSCULAR VOLUME 87.7 fl (82.0-101.0); MEAN PLATELET VOLUME 10.5 fl (7.4-10.4); MONOCYTE # 1.7 10^3/ul (0.3-0.9); MONOCYTES % 12.8 % (0.0-11.0); NEUTROPHIL # 9.6 10^3/ul (1.6-7.5); NEUTROPHILS % 70.6 % (39.0-77.0); PLATELET COUNT 227 10^3/UL (140-415); POSITIVE DIFF @See below; RED BLOOD COUNT 3.18 10^6/ul (4.70-6.10); RED CELL DISTRIBUTION WIDTH 15.2 % (11.5-14.5)
[2017-10-04] MEDS: HYDROCODONE/APAP (5/325) TAB PO ×3 (05:50→19:24)
[2017-10-04 06:05] LABS: ANION GAP 18 (8-16); BLOOD UREA NITROGEN 58 mg/dl (7-20); CALCIUM 8.3 mg/dl (8.4-10.2); CARBON DIOXIDE 24 mmol/L (21-31); CHLORIDE 98 mmol/L (97-110); CREATININE 2.15 mg/dl (0.61-1.24); GLUCOSE 128 mg/dl (70-220); POTASSIUM 4.7 mmol/L (3.5-5.1); SODIUM 135 mmol/L (135-144)
[2017-10-04] MEDS: INSULIN ASPART [NOVOLOG] 3 ML PEN SC ×4 (09:06→21:00)
[2017-10-04] MEDS: ERTAPENEM SODIUM 1 GM in SOD CHLORIDE 0.9% 100 ML IVPB ×2 (13:30→19:31)
[2017-10-04] MEDS: MAGNESIUM CHLORIDE (SR) 64 MG TAB PO ×2 (13:38→21:30)
[2017-10-04] MEDS: FINASTERIDE 5 MG TAB PO (13:38)
[2017-10-04] MEDS: CITRIC ACID/SODIUM CITRATE 15 ML CUP PO ×2 (13:38→21:30)
[2017-10-04] MEDS: APIXABAN 5 MG TABLET PO ×2 (13:38→21:32)
[2017-10-04] MEDS: LINAGLIPTIN 5 MG TABLET PO (13:38)
[2017-10-04] MEDS: ALLOPURINOL 300 MG TAB PO (13:38)
[2017-10-04] MEDS: METOPROLOL 50 MG TAB PO ×2 (13:46→21:32)
[2017-10-04] MEDS: SOD CHLORIDE 0.9% 500 ML IV (13:46)
[2017-10-04] MEDS ORDERED: BUPIVACAINE 0.5% 30 ML VIAL INJ ×2 (17:30→20:30)
[2017-10-04] MEDS ORDERED: BETAMET NA PHOS/AC(6 MG/ML) 5ML INJ INJ (20:30)
[2017-10-04] MEDS ORDERED: VANCOMYCIN IV PER PHARMACY XX (21:30)
[2017-10-04] MEDS: LEVOTHYROXINE 75 MCG TAB PO (21:31)
[2017-10-04] MEDS: DOXAZOSIN 4 MG TAB PO (21:32)
[2017-10-04] MEDS: ONDANSETRON 4 MG INJ IV (21:43)
[2017-10-04] MEDS: morphine 4 MG/ML VIAL IV (22:17)
[2017-10-04] MEDS: VANCOMYCIN 1.25 GM in SODIUM CHLORIDE 0.45 % 250 ML IVPB (22:39)
[2017-10-04 23:09] LABS: LACTIC ACID 0.8 mmol/L (0.5-2.0)
[2017-10-05] MEDS: HYDROCODONE/APAP (10/325) TAB PO ×4 (01:15→19:50)
[2017-10-05] MEDS: ACCU-CHEK XX (02:00)
[2017-10-05 05:24] LABS: ADD MAN DIFF? NO
[2017-10-05 05:35] LABS: ABNORMAL IP MESSAGE 1; BASOPHIL # 0.1 10^3/ul (0.0-0.1); BASOPHILS % 0.4 % (0.0-2.0); EOSINOPHILS # 0.1 10^3/ul (0.0-0.5); EOSINOPHILS % 0.4 % (0.0-7.0); HEMATOCRIT 27.4 % (42.0-52.0); HEMOGLOBIN 8.8 g/dl (14.0-18.0); LYMPHOCYTES # 1.6 10^3/ul (0.8-2.9); LYMPHOCYTES % 10.3 % (15.0-51.0); MEAN CORPUSCULAR HGB CONC 32.1 g/dl (32.0-37.0); MEAN CORPUSCULAR VOLUME 87.3 fl (82.0-101.0); MEAN PLATELET VOLUME 10.7 fl (7.4-10.4); MONOCYTE # 1.6 10^3/ul (0.3-0.9); MONOCYTES % 9.9 % (0.0-11.0); NEUTROPHIL # 12.3 10^3/ul (1.6-7.5); NEUTROPHILS % 78.1 % (39.0-77.0); PLATELET COUNT 233 10^3/UL (140-415); POSITIVE DIFF @See below; RED BLOOD COUNT 3.14 10^6/ul (4.70-6.10); RED CELL DISTRIBUTION WIDTH 15.4 % (11.5-14.5)
[2017-10-05 05:35] LABS: WHITE BLOOD COUNT 15.7 10^3/ul (4.8-10.8)
[2017-10-05 06:08] LABS: ANION GAP 16 (8-16); BLOOD UREA NITROGEN 63 mg/dl (7-20); CALCIUM 8.6 mg/dl (8.4-10.2); CARBON DIOXIDE 25 mmol/L (21-31); CHLORIDE 98 mmol/L (97-110); CREATININE 2.33 mg/dl (0.61-1.24); GLUCOSE 152 mg/dl (70-220); SODIUM 134 mmol/L (135-144)
[2017-10-05] MEDS: INSULIN ASPART [NOVOLOG] 3 ML PEN SC ×4 (07:50→21:00)
[2017-10-05] MEDS: FINASTERIDE 5 MG TAB PO (08:42)
[2017-10-05] MEDS: MAGNESIUM CHLORIDE (SR) 64 MG TAB PO ×2 (08:42→21:45)
[2017-10-05] MEDS: APIXABAN 5 MG TABLET PO ×2 (08:42→21:45)
[2017-10-05] MEDS: ALLOPURINOL 300 MG TAB PO (08:42)
[2017-10-05] MEDS: METOPROLOL 50 MG TAB PO ×2 (08:42→21:46)
[2017-10-05] MEDS: LINAGLIPTIN 5 MG TABLET PO (08:43)
[2017-10-05] MEDS: CITRIC ACID/SODIUM CITRATE 15 ML CUP PO ×2 (08:44→21:46)
[2017-10-05] MEDS: ACETAMINOPHEN 325 MG TAB PO (17:46)
[2017-10-05] MEDS: DOXAZOSIN 4 MG TAB PO (21:45)
[2017-10-05] MEDS: LEVOTHYROXINE 75 MCG TAB PO (21:46)
[2017-10-06] MEDS: HYDROCODONE/APAP (10/325) TAB PO (01:57)
[2017-10-06] MEDS: ACCU-CHEK XX (02:00)
[2017-10-06 05:04] LABS: ADD MAN DIFF? NO
[2017-10-06 05:15] LABS: WHITE BLOOD COUNT 13.6 10^3/ul (4.8-10.8)
[2017-10-06 05:15] LABS: BASOPHIL # 0.1 10^3/ul (0.0-0.1); BASOPHILS % 0.6 % (0.0-2.0); EOSINOPHILS # 0.5 10^3/ul (0.0-0.5); HEMATOCRIT 26.1 % (42.0-52.0); HEMOGLOBIN 8.5 g/dl (14.0-18.0); LYMPHOCYTES # 1.6 10^3/ul (0.8-2.9); LYMPHOCYTES % 11.5 % (15.0-51.0); MEAN CORPUSCULAR HEMOGLOBIN 28.9 pg (29.0-33.0); MEAN CORPUSCULAR HGB CONC 32.6 g/dl (32.0-37.0); MEAN CORPUSCULAR VOLUME 88.8 fl (82.0-101.0); MEAN PLATELET VOLUME 10.6 fl (7.4-10.4); MONOCYTE # 1.3 10^3/ul (0.3-0.9); MONOCYTES % 9.3 % (0.0-11.0); NEUTROPHIL # 10.1 10^3/ul (1.6-7.5); NEUTROPHILS % 74.1 % (39.0-77.0); PLATELET COUNT 235 10^3/UL (140-415); RED BLOOD COUNT 2.94 10^6/ul (4.70-6.10); RED CELL DISTRIBUTION WIDTH 15.4 % (11.5-14.5)
[2017-10-06 05:44] LABS: ANION GAP 16 (8-16); BLOOD UREA NITROGEN 73 mg/dl (7-20); CALCIUM 8.4 mg/dl (8.4-10.2); CARBON DIOXIDE 26 mmol/L (21-31); CHLORIDE 97 mmol/L (97-110); CREATININE 2.77 mg/dl (0.61-1.24); GLUCOSE 140 mg/dl (70-220); MAGNESIUM 2.3 mg/dl (1.7-2.5); POTASSIUM 4.7 mmol/L (3.5-5.1); SODIUM 134 mmol/L (135-144)
[2017-10-06] MEDS: INSULIN ASPART [NOVOLOG] 3 ML PEN SC ×4 (07:50→21:00)
[2017-10-06] MEDS: APIXABAN 5 MG TABLET PO ×2 (08:55→20:50)
[2017-10-06] MEDS: CITRIC ACID/SODIUM CITRATE 15 ML CUP PO ×2 (08:55→20:49)
[2017-10-06] MEDS: FINASTERIDE 5 MG TAB PO (08:56)
[2017-10-06] MEDS: METOPROLOL 50 MG TAB PO ×2 (08:56→20:51)
[2017-10-06] MEDS: LINAGLIPTIN 5 MG TABLET PO (08:56)
[2017-10-06] MEDS: MAGNESIUM CHLORIDE (SR) 64 MG TAB PO ×2 (08:56→20:50)
[2017-10-06] MEDS: ALLOPURINOL 300 MG TAB PO (08:57)
[2017-10-06] MEDS: VANCOMYCIN 1.25 GM in SODIUM CHLORIDE 0.45 % 250 ML IVPB (08:57)
[2017-10-06] MEDS: ERTAPENEM SODIUM 1 GM in SOD CHLORIDE 0.9% 100 ML IVPB (12:51)
[2017-10-06] MEDS: ACETAMINOPHEN 325 MG TAB PO (15:21)
[2017-10-06] MEDS: BISACODYL (EC) 5 MG TAB PO (17:00)
[2017-10-06] MEDS ORDERED: SENNA TAB PO (17:00)
[2017-10-06 17:22] LABS: SYN FLD PMN % 93.9 % (0.0-25.0); SYN FLD WBC 16122 /cmm (0-150)
[2017-10-06 18:37] LABS: SYN FLD MN % 6.1 &
[2017-10-06 18:40] LABS: SYN FLD CLARITY CLOUDY
[2017-10-06 18:41] LABS: SYN FLD SOURCE RIGHT KNEE
[2017-10-06 18:48] LABS: SYN FLD CRYSTALS URIC ACID CRYSTALS (None seen)
[2017-10-06 19:39] LABS: SYN FLD COLOR YELLOW
[2017-10-06] MEDS: SOD CHLORIDE 0.9% 1,000 ML IV (20:49)
[2017-10-06] MEDS: DOXAZOSIN 4 MG TAB PO (20:50)
[2017-10-06] MEDS: LEVOTHYROXINE 75 MCG TAB PO (20:51)
[2017-10-07] MEDS: ACCU-CHEK XX (02:00)
[2017-10-07 05:15] LABS: ABNORMAL IP MESSAGE 1; HEMATOCRIT 25.1 % (42.0-52.0); HEMOGLOBIN 8.2 g/dl (14.0-18.0); MEAN CORPUSCULAR HEMOGLOBIN 28.9 pg (29.0-33.0); MEAN CORPUSCULAR HGB CONC 32.7 g/dl (32.0-37.0); MEAN CORPUSCULAR VOLUME 88.4 fl (82.0-101.0); MEAN PLATELET VOLUME 10.6 fl (7.4-10.4); PLATELET COUNT 239 10^3/UL (140-415); POSITIVE DIFF @See below; RED BLOOD COUNT 2.84 10^6/ul (4.70-6.10)
[2017-10-07 05:22] LABS: ADD MAN DIFF? YES
[2017-10-07 05:49] LABS: ANION GAP 18 (8-16); BLOOD UREA NITROGEN 78 mg/dl (7-20); CALCIUM 8.7 mg/dl (8.4-10.2); CARBON DIOXIDE 24 mmol/L (21-31); CHLORIDE 97 mmol/L (97-110); CREATININE 2.48 mg/dl (0.61-1.24); GLUCOSE 232 mg/dl (70-220); POTASSIUM 4.8 mmol/L (3.5-5.1); SODIUM 134 mmol/L (135-144)
[2017-10-07] MEDS: CITRIC ACID/SODIUM CITRATE 15 ML CUP PO ×2 (08:48→21:14)
[2017-10-07] MEDS: BISACODYL (EC) 5 MG TAB PO (08:48)
[2017-10-07] MEDS: APIXABAN 5 MG TABLET PO ×2 (08:49→21:16)
[2017-10-07] MEDS: METOPROLOL 50 MG TAB PO ×2 (08:49→21:16)
[2017-10-07] MEDS: FINASTERIDE 5 MG TAB PO (08:50)
[2017-10-07] MEDS: MAGNESIUM CHLORIDE (SR) 64 MG TAB PO (08:50)
[2017-10-07] MEDS: ALLOPURINOL 300 MG TAB PO (08:51)
[2017-10-07] MEDS: LINAGLIPTIN 5 MG TABLET PO (08:51)
[2017-10-07 08:53] LABS: LYMPHOCYTES #M 0.4 10^3/ul (0.8-2.9); LYMPHOCYTES % (M) 3 % (15-51); MONOCYTE #M 0.1 10^3/ul (0.3-0.9); MONOCYTES % (M) 1 % (0-11); PLATELET ESTIMATE NORMAL; REACTIVE LYMPHOCYTES #M 0.1 10^3/ul (0.0-0.0); REACTIVE LYMPHOCYTES% (M) 1 % (0-0); SEGMENTED NEUTROPHILS (M) % 95 % (39-77); SMUDGE%M 1 % (0-0)
[2017-10-07] MEDS: INSULIN ASPART [NOVOLOG] 3 ML PEN SC ×4 (09:04→21:29)
[2017-10-07] MEDS: FUROSEMIDE 40 MG INJ IV (12:53)
[2017-10-07] MEDS: ERTAPENEM SODIUM 1 GM in SOD CHLORIDE 0.9% 100 ML IVPB (12:54)
[2017-10-07] MEDS: predniSONE 10 MG TAB PO (14:01)
[2017-10-07] MEDS: LEVOTHYROXINE 75 MCG TAB PO (21:14)
[2017-10-07] MEDS: DOXAZOSIN 4 MG TAB PO (21:15)
[2017-10-07] MEDS: INSULIN GLARGINE [LANtus] 3 ML PEN SC (21:26)
[2017-10-08] MEDS: ACCU-CHEK XX (02:00)
[2017-10-08 05:36] LABS: ADD MAN DIFF? NO
[2017-10-08 05:46] LABS: WHITE BLOOD COUNT 20.8 10^3/ul (4.8-10.8)
[2017-10-08 05:46] LABS: BASOPHILS % 0.1 % (0.0-2.0); HEMATOCRIT 26.6 % (42.0-52.0); HEMOGLOBIN 8.5 g/dl (14.0-18.0); LYMPHOCYTES # 0.7 10^3/ul (0.8-2.9); LYMPHOCYTES % 3.3 % (15.0-51.0); MEAN CORPUSCULAR HEMOGLOBIN 28.3 pg (29.0-33.0); MEAN CORPUSCULAR VOLUME 88.7 fl (82.0-101.0); MONOCYTE # 0.4 10^3/ul (0.3-0.9); MONOCYTES % 2.1 % (0.0-11.0); NEUTROPHIL # 19.5 10^3/ul (1.6-7.5); NEUTROPHILS % 93.8 % (39.0-77.0); PLATELET COUNT 281 10^3/UL (140-415); RED CELL DISTRIBUTION WIDTH 15.1 % (11.5-14.5)
[2017-10-08 06:25] LABS: ALANINE AMINOTRANSFERASE 48 IU/L (13-69); ALBUMIN 3.4 g/dl (3.3-4.9); ALBUMIN/GLOBULIN RATIO 0.94; ALKALINE PHOSPHATASE 82 IU/L (42-121); ANION GAP 17 (8-16); ASPARTATE AMINO TRANSFERASE 46 IU/L (15-46); BLOOD UREA NITROGEN 90 mg/dl (7-20); CALCIUM 8.9 mg/dl (8.4-10.2); CARBON DIOXIDE 24 mmol/L (21-31); CHLORIDE 100 mmol/L (97-110); CREATININE 2.26 mg/dl (0.61-1.24); GLUCOSE 209 mg/dl (70-220); POTASSIUM 4.7 mmol/L (3.5-5.1); SODIUM 136 mmol/L (135-144)
[2017-10-08] MEDS: ALLOPURINOL 300 MG TAB PO (10:00)
[2017-10-08] MEDS: FINASTERIDE 5 MG TAB PO (10:01)
[2017-10-08] MEDS: predniSONE 10 MG TAB PO (10:01)
[2017-10-08] MEDS: APIXABAN 5 MG TABLET PO ×2 (10:01→21:11)
[2017-10-08] MEDS: LINAGLIPTIN 5 MG TABLET PO (10:02)
[2017-10-08] MEDS: BISACODYL (EC) 5 MG TAB PO (10:02)
[2017-10-08] MEDS: METOPROLOL 50 MG TAB PO ×2 (10:04→21:10)
[2017-10-08] MEDS: FUROSEMIDE 40 MG INJ IV (10:05)
[2017-10-08] MEDS: CITRIC ACID/SODIUM CITRATE 15 ML CUP PO ×2 (10:05→21:13)
[2017-10-08] MEDS: INSULIN ASPART [NOVOLOG] 3 ML PEN SC ×4 (10:17→21:17)
[2017-10-08] MEDS: LEVOTHYROXINE 75 MCG TAB PO (21:10)
[2017-10-08] MEDS: DOXAZOSIN 4 MG TAB PO (21:13)
[2017-10-08] MEDS: INSULIN GLARGINE [LANtus] 3 ML PEN SC (21:16)
[2017-10-09] MEDS: ACCU-CHEK XX (02:44)
[2017-10-09 05:56] LABS: ALANINE AMINOTRANSFERASE 52 IU/L (13-69); ALBUMIN 3.4 g/dl (3.3-4.9); ALBUMIN/GLOBULIN RATIO 0.94; ALKALINE PHOSPHATASE 88 IU/L (42-121); ANION GAP 16 (8-16); ASPARTATE AMINO TRANSFERASE 45 IU/L (15-46); BLOOD UREA NITROGEN 97 mg/dl (7-20); CALCIUM 9.4 mg/dl (8.4-10.2); CARBON DIOXIDE 26 mmol/L (21-31); CHLORIDE 101 mmol/L (97-110); GLUCOSE 199 mg/dl (70-220); POTASSIUM 4.6 mmol/L (3.5-5.1); SODIUM 138 mmol/L (135-144)
[2017-10-09] MEDS: ALLOPURINOL 300 MG TAB PO (09:01)
[2017-10-09] MEDS: FINASTERIDE 5 MG TAB PO (09:01)
[2017-10-09] MEDS: BISACODYL (EC) 5 MG TAB PO (09:01)
[2017-10-09] MEDS: LINAGLIPTIN 5 MG TABLET PO (09:01)
[2017-10-09] MEDS: APIXABAN 5 MG TABLET PO (09:02)
[2017-10-09] MEDS: METOPROLOL 50 MG TAB PO (09:02)
[2017-10-09] MEDS: predniSONE 10 MG TAB PO (09:02)
[2017-10-09] MEDS: FUROSEMIDE 40 MG INJ IV (09:03)
[2017-10-09] MEDS: CITRIC ACID/SODIUM CITRATE 15 ML CUP PO (09:03)
[2017-10-09] MEDS: INSULIN ASPART [NOVOLOG] 3 ML PEN SC ×2 (09:03→13:05)
[2017-10-09] MEDS: ACETAMINOPHEN 325 MG TAB PO (11:07)
== END 2017-10-09 15:15 | disposition home or self-care (01) | DRG 304 ==
LOC: MS1 09-28 02:16 → E/R 08:23 → TEL 10:36
PROC: 0S9C3ZX Drainage of Right Knee Joint, Percutaneous Approach, Diagnostic (ICD-10-PCS; principal; 2017-10-06)
DX: I13.10 Hypertensive heart and chronic kidney disease without heart failure, with stage 1 through stage 4 chronic kidney disease, or unspecified chronic kidney disease (principal); I50.23 Acute on chronic systolic (congestive) heart failure; J18.9 Pneumonia, unspecified organism; N17.9 Acute kidney failure, unspecified; E87.2 Acidosis; R65.10 Systemic inflammatory response syndrome (SIRS) of non-infectious origin without acute organ dysfunction; R78.81 Bacteremia; M00.869 Arthritis due to other bacteria, unspecified knee; N18.3 Chronic kidney disease, stage 3 (moderate); N39.0 Urinary tract infection, site not specified; I50.33 Acute on chronic diastolic (congestive) heart failure; M11.9 Crystal arthropathy, unspecified; E11.9 Type 2 diabetes mellitus without complications; E11.22 Type 2 diabetes mellitus with diabetic chronic kidney disease; E87.5 Hyperkalemia; E83.42 Hypomagnesemia; E11.40 Type 2 diabetes mellitus with diabetic neuropathy, unspecified; D50.9 Iron deficiency anemia, unspecified; I48.91 Unspecified atrial fibrillation; N28.1 Cyst of kidney, acquired; N40.0 Benign prostatic hyperplasia without lower urinary tract symptoms; N18.9 Chronic kidney disease, unspecified; R80.9 Proteinuria, unspecified; I51.7 Cardiomegaly; M10.9 Gout, unspecified; E79.0 Hyperuricemia without signs of inflammatory arthritis and tophaceous disease; E03.9 Hypothyroidism, unspecified; E66.9 Obesity, unspecified; M17.12 Unilateral primary osteoarthritis, left knee; R53.81 Other malaise; B96.20 Unspecified Escherichia coli [E. coli] as the cause of diseases classified elsewhere; Z68.32 Body mass index [BMI] 32.0-32.9, adult
CPT/HCPCS: 36415; 36600; 71010; 71045; 73560; 76775; 80048; 80053; 80202; 81001; 82550; 82553; 82728; 82803; 82962; 83036; 83540; 83605; 83735; 84100; 84155; 84165; 84300; 84439; 84443; 84484; 84560; 85025; 85610; 85730; 86038; 86430; 86592; 86704; 86709; 86803; 87040; 87070; 87086; 87340; 89060; 89190; 93005; 93306; 93970; 96374; 96375; 97110; 97116; 97162; 97530; 99291-25; J1940

== ENCOUNTER 2017-10-30 02:09 | Inpatient (IN) | payer MEDICAID ==
[2017-10-30 03:26] LABS: ADD MAN DIFF? NO
[2017-10-30 03:48] LABS: ALANINE AMINOTRANSFERASE 33 IU/L (13-69); ALBUMIN 4.1 g/dl (3.3-4.9); ALKALINE PHOSPHATASE 83 IU/L (42-121); ANION GAP 17 (8-16); ASPARTATE AMINO TRANSFERASE 24 IU/L (15-46); BILIRUBIN,INDIRECT 0.1 mg/dl (0-1.1); BILIRUBIN,TOTAL 0.1 mg/dl (0.2-1.3); BLOOD UREA NITROGEN 74 mg/dl (7-20); CALCIUM 9.2 mg/dl (8.4-10.2); CARBON DIOXIDE 21 mmol/L (21-31); CHLORIDE 105 mmol/L (97-110); CREATININE 2.48 mg/dl (0.61-1.24); GLUCOSE 89 mg/dl (70-220); POTASSIUM 4.3 mmol/L (3.5-5.1); SODIUM 139 mmol/L (135-144); TOTAL PROTEIN 7.5 g/dl (6.1-8.1)
[2017-10-30 03:56] LABS: B-TYPE NATRIURETIC PEPTIDE 5480 PG/ML (0-450)
[2017-10-30 04:01] LABS: TROPONIN-I 0.027 ng/ml (0.00-0.12)
[2017-10-30 04:05] LABS: BASOPHIL # 0.1 10^3/ul (0.0-0.1); BASOPHILS % 0.5 % (0.0-2.0); EOSINOPHILS # 1.6 10^3/ul (0.0-0.5); EOSINOPHILS % 14.2 % (0.0-7.0); HEMATOCRIT 31.5 % (42.0-52.0); HEMOGLOBIN 9.8 g/dl (14.0-18.0); LYMPHOCYTES # 1.9 10^3/ul (0.8-2.9); LYMPHOCYTES % 16.8 % (15.0-51.0); MEAN CORPUSCULAR HEMOGLOBIN 28.2 pg (29.0-33.0); MEAN CORPUSCULAR HGB CONC 31.1 g/dl (32.0-37.0); MEAN CORPUSCULAR VOLUME 90.5 fl (82.0-101.0); MEAN PLATELET VOLUME 11.7 fl (7.4-10.4); MONOCYTE # 1.1 10^3/ul (0.3-0.9); NEUTROPHIL # 6.4 10^3/ul (1.6-7.5); PLATELET COUNT 190 10^3/UL (140-415); RED BLOOD COUNT 3.48 10^6/ul (4.70-6.10)
[2017-10-30] MEDS ORDERED: ONDANSETRON 4 MG INJ IV (06:00)
[2017-10-30] MEDS ORDERED: NACL 0.9% 3 ML SYG IV (06:00)
[2017-10-30] MEDS ORDERED: NITROGLYCERIN (SL) 0.4 MG TAB SL (06:00)
[2017-10-30] MEDS ORDERED: morphine 2 MG INJ IV (06:00)
[2017-10-30] MEDS ORDERED: ALBUTEROL/IPRATROPIUM (NEB) 3 ML AMP HHN (06:00)
[2017-10-30] MEDS: traMADol 50 MG TAB PO ×3 (06:25→21:35)
[2017-10-30] MEDS ORDERED: GLUCOSE GEL 15 GRAM TUBE PO ×2 (06:30)
[2017-10-30] MEDS ORDERED: GLUCAGON 1 MG INJ IM (06:30)
[2017-10-30] MEDS ORDERED: GLUCOSE GEL 15 GRAM TUBE BUCCAL (06:30)
[2017-10-30] MEDS ORDERED: DEXTROSE 50% 50 ML SYRINGE IV ×2 (06:30)
[2017-10-30] MEDS ORDERED: METOPROLOL 50 MG TAB (07:36)
[2017-10-30] MEDS ORDERED: FUROSEMIDE 20 MG TAB (07:36)
[2017-10-30] MEDS: FERROUS SULFATE (EC) 325 MG TAB PO ×2 (07:41→20:09)
[2017-10-30] MEDS: METOPROLOL 50 MG TAB PO ×2 (07:41→20:09)
[2017-10-30] MEDS: ALLOPURINOL 300 MG TAB PO (07:41)
[2017-10-30] MEDS: APIXABAN 5 MG TABLET PO ×2 (07:42→20:09)
[2017-10-30] MEDS: INSULIN GLARGINE [LANtus] 3 ML PEN SC (07:44)
[2017-10-30] MEDS: INSULIN ASPART [NOVOLOG] 3 ML PEN SC ×4 (07:46→20:29)
[2017-10-30] MEDS ORDERED: FUROSEMIDE 40 MG INJ (07:50)
[2017-10-30] MEDS: FUROSEMIDE 40 MG INJ IV (07:53)
[2017-10-30] MEDS ORDERED: HEPARIN 5,000 UNIT/0.5 ML VIAL SC (09:00)
[2017-10-30] MEDS ORDERED: RIVAROXABAN 10 MG TABLET PO (09:00)
[2017-10-30] MEDS: BACLOFEN 10 MG TAB PO (15:35)
[2017-10-30] MEDS: LEVOTHYROXINE 75 MCG TAB PO (20:09)
[2017-10-30] MEDS: PANTOPRAZOLE 40 MG INJ IV (21:36)
[2017-10-31] MEDS: ACCU-CHEK XX (02:00)
[2017-10-31] MEDS: PANTOPRAZOLE 40 MG INJ IV (06:09)
[2017-10-31] MEDS: traMADol 50 MG TAB PO ×3 (06:09→21:11)
[2017-10-31] MEDS: INSULIN ASPART [NOVOLOG] 3 ML PEN SC ×4 (08:00→21:00)
[2017-10-31] MEDS: FUROSEMIDE 40 MG INJ IV (08:32)
[2017-10-31] MEDS: METOPROLOL 50 MG TAB PO ×2 (08:33→21:04)
[2017-10-31] MEDS: FERROUS SULFATE (EC) 325 MG TAB PO ×2 (08:33→21:03)
[2017-10-31] MEDS: APIXABAN 5 MG TABLET PO ×2 (08:33→21:03)
[2017-10-31] MEDS: ALLOPURINOL 300 MG TAB PO (08:33)
[2017-10-31] MEDS: BACLOFEN 10 MG TAB PO (08:33)
[2017-10-31] MEDS: INSULIN GLARGINE [LANtus] 3 ML PEN SC (08:35)
[2017-10-31 09:58] LABS: ADD MAN DIFF? NO
[2017-10-31 10:03] LABS: BASOPHIL # 0.1 10^3/ul (0.0-0.1); BASOPHILS % 0.5 % (0.0-2.0); EOSINOPHILS # 1.6 10^3/ul (0.0-0.5); HEMATOCRIT 34.3 % (42.0-52.0); HEMOGLOBIN 10.7 g/dl (14.0-18.0); LYMPHOCYTES # 1.7 10^3/ul (0.8-2.9); LYMPHOCYTES % 11.9 % (15.0-51.0); MEAN CORPUSCULAR HEMOGLOBIN 28.1 pg (29.0-33.0); MEAN CORPUSCULAR HGB CONC 31.2 g/dl (32.0-37.0); MEAN PLATELET VOLUME 11.9 fl (7.4-10.4); MONOCYTE # 1.3 10^3/ul (0.3-0.9); MONOCYTES % 9.2 % (0.0-11.0); NEUTROPHIL # 9.5 10^3/ul (1.6-7.5); PLATELET COUNT 237 10^3/UL (140-415); RED BLOOD COUNT 3.81 10^6/ul (4.70-6.10); RED CELL DISTRIBUTION WIDTH 16.8 % (11.5-14.5)
[2017-10-31 10:03] LABS: WHITE BLOOD COUNT 14.2 10^3/ul (4.8-10.8)
[2017-10-31 10:22] LABS: MAGNESIUM 1.4 mg/dl (1.7-2.5)
[2017-10-31 10:22] LABS: PHOSPHORUS 4.2 mg/dl (2.5-4.9)
[2017-10-31 10:29] LABS: ALANINE AMINOTRANSFERASE 30 IU/L (13-69); ALBUMIN 4.2 g/dl (3.3-4.9); ALBUMIN/GLOBULIN RATIO 1.07; ALKALINE PHOSPHATASE 74 IU/L (42-121); ANION GAP 18 (8-16); ASPARTATE AMINO TRANSFERASE 24 IU/L (15-46); BILIRUBIN,INDIRECT 0.5 mg/dl (0-1.1); BILIRUBIN,TOTAL 0.5 mg/dl (0.2-1.3); BLOOD UREA NITROGEN 74 mg/dl (7-20); CALCIUM 9.3 mg/dl (8.4-10.2); CARBON DIOXIDE 21 mmol/L (21-31); CHLORIDE 102 mmol/L (97-110); CREATININE 2.23 mg/dl (0.61-1.24); GLUCOSE 149 mg/dl (70-220); POTASSIUM 4.2 mmol/L (3.5-5.1); SODIUM 137 mmol/L (135-144); TOTAL PROTEIN 8.1 g/dl (6.1-8.1)
[2017-10-31] MEDS: METOCLOPRAMIDE 5 MG TAB PO ×2 (13:10→21:03)
[2017-10-31] MEDS: MAGNESIUM SULFATE 2 GM/50 ML 50 ML IVPB (13:10)
[2017-10-31] MEDS: ACETAMINOPHEN 325 MG TAB PO (16:42)
[2017-10-31] MEDS: LEVOTHYROXINE 75 MCG TAB PO (21:04)
[2017-11-01] MEDS: BACLOFEN 10 MG TAB PO ×2 (00:09→08:36)
[2017-11-01] MEDS: METOCLOPRAMIDE 10 MG INJ IV (00:09)
[2017-11-01] MEDS: ACCU-CHEK XX (02:00)
[2017-11-01] MEDS: PANTOPRAZOLE 40 MG INJ IV (05:50)
[2017-11-01] MEDS: traMADol 50 MG TAB PO ×2 (05:51→13:45)
[2017-11-01] MEDS: INSULIN ASPART [NOVOLOG] 3 ML PEN SC ×3 (08:00→17:26)
[2017-11-01 08:27] LABS: ADD MAN DIFF? NO
[2017-11-01 08:33] LABS: WHITE BLOOD COUNT 12.5 10^3/ul (4.8-10.8)
[2017-11-01 08:33] LABS: ABNORMAL IP MESSAGE 1; BASOPHIL # 0.1 10^3/ul (0.0-0.1); BASOPHILS % 0.5 % (0.0-2.0); EOSINOPHILS # 0.7 10^3/ul (0.0-0.5); EOSINOPHILS % 5.9 % (0.0-7.0); HEMOGLOBIN 9.3 g/dl (14.0-18.0); LYMPHOCYTES # 1.5 10^3/ul (0.8-2.9); LYMPHOCYTES % 11.8 % (15.0-51.0); MEAN CORPUSCULAR HEMOGLOBIN 28.3 pg (29.0-33.0); MEAN CORPUSCULAR HGB CONC 32.1 g/dl (32.0-37.0); MEAN CORPUSCULAR VOLUME 88.1 fl (82.0-101.0); MEAN PLATELET VOLUME 11.2 fl (7.4-10.4); MONOCYTE # 1.5 10^3/ul (0.3-0.9); MONOCYTES % 12.3 % (0.0-11.0); NEUTROPHIL # 8.6 10^3/ul (1.6-7.5); PLATELET COUNT 198 10^3/UL (140-415); POSITIVE DIFF @See below; RED BLOOD COUNT 3.29 10^6/ul (4.70-6.10); RED CELL DISTRIBUTION WIDTH 16.7 % (11.5-14.5)
[2017-11-01] MEDS: INSULIN GLARGINE [LANtus] 3 ML PEN SC (08:33)
[2017-11-01] MEDS: METOCLOPRAMIDE 5 MG TAB PO ×2 (08:34→12:53)
[2017-11-01] MEDS: FUROSEMIDE 40 MG INJ IV (08:34)
[2017-11-01] MEDS: ALLOPURINOL 300 MG TAB PO (08:34)
[2017-11-01] MEDS: METOPROLOL 50 MG TAB PO (08:35)
[2017-11-01] MEDS: FERROUS SULFATE (EC) 325 MG TAB PO (08:36)
[2017-11-01] MEDS: APIXABAN 5 MG TABLET PO (08:36)
[2017-11-01 08:56] LABS: ANION GAP 16 (8-16); BLOOD UREA NITROGEN 78 mg/dl (7-20); CARBON DIOXIDE 21 mmol/L (21-31); CHLORIDE 102 mmol/L (97-110); CREATININE 2.65 mg/dl (0.61-1.24); GLUCOSE 141 mg/dl (70-220); MAGNESIUM 1.7 mg/dl (1.7-2.5); POTASSIUM 4.1 mmol/L (3.5-5.1); SODIUM 135 mmol/L (135-144)
[2017-11-01] MEDS: ACETAMINOPHEN 325 MG TAB PO (11:07)
[2017-11-01] MEDS: LEVOFLOXACIN 500 MG TAB PO (15:37)
== END 2017-11-01 20:23 | disposition home or self-care (01) | DRG 292 ==
LOC: E/R 02:09 → MS4 05:35
DX: I50.23 Acute on chronic systolic (congestive) heart failure (principal); I13.0 Hypertensive heart and chronic kidney disease with heart failure and stage 1 through stage 4 chronic kidney disease, or unspecified chronic kidney disease; E11.22 Type 2 diabetes mellitus with diabetic chronic kidney disease; I48.91 Unspecified atrial fibrillation; E11.9 Type 2 diabetes mellitus without complications; E03.9 Hypothyroidism, unspecified; R06.6 Hiccough; N18.9 Chronic kidney disease, unspecified
CPT/HCPCS: 36415; 71045; 74018; 80048; 80053; 82962; 83735; 83880; 84100; 84443; 84484; 85025; 87081; 93005; 96372; 96374; 96375; 99217; 99285-25